=== PATIENT | female | born 1955 | race Caucasian/White ===

== ENCOUNTER → 2017-07-22 | Outpatient (CLI) | payer BC ==
--- NOTE | ~2017-07-22 | MY29 ---
[facility] A Service of [facility] RADIOLOGY TEXT RESULTS PATIENT: STACI FLYNN LOCATION: [facility] : 53 UNIT #: [id number] AGE: [address]: Vernon Mcclure MD SEX: F ORDER DR: [id number] [facility] [address] [place], [place] [address] [id number] O MR#: [id number] Acc #: [id number] NAME: STACI FLYNN : 1955 SEX: F STUDY DATE/TIME: 07/22/2017 9:40 UNIT: [facility] ROOM: STUDY DESCRIPTION: MY CANDICE SCREENING W/ CAD BILAT Attending Physician: Vernon Mcclure M.D. Referring Physician: Vernon Mcclure M.D. Ordering Physician: Vernon Mcclure M.D. Primary Care Physician: Dinesh Fair M.D. MEDICAL IMAGING REPORT This report is preliminary unless electronic signature is present EXAM Bilateral digital screening with CAD HISTORY Routine screening. No current complaints. No family history of breast cancer. COMPARISON 01/08/2016, 09/17/2013. FINDINGS MLO and CC digital views of each breast were obtained. The exam was reviewed with an FDA-approved CAD device. Breasts are almost entirely fatty replaced. There are no masses or abnormal calcifications. IMPRESSION No evidence of malignancy; no change. Patients over the age of 40 are entered into a reminder system with target due date for the next mammogram. A result letter will also be sent to the patient. BIRADS: 1 Negative Dictated by... Bronson Freeman M.D. THIS IS AN ELECTRONICALLY VERIFIED REPORT Bronson Freeman M.D. at 07/22/2017 3:10 PM JANETH/celestino [facility] A Service of [facility] RADIOLOGY TEXT RESULTS PATIENT: STACI FLYNN LOCATION: [facility] : 53 UNIT #: [id number] AGE: [address]: Vernon Mcclure MD SEX: F ORDER DR: TD: 07/22/2017 14:16 JOB #: [id number] MEDICAL IMAGING REPORT Page 1 of 1 COPY
== END | disposition home or self-care (01) ==
LOC: CWCC 09:13
DX: Z12.31 Encounter for screening mammogram for malignant neoplasm of breast (principal)
CPT/HCPCS: G0202